=== PATIENT | female | born 1935 | race Caucasian/White ===

== ENCOUNTER 2020-09-18 11:23 | Inpatient (IN) | payer MEDICARE, BC ==
[2020-09-18] MEDS ORDERED: Nitroglycerin 2% Ointment 1 INCH/1 GM Packet ONE (12:09)
[2020-09-18 12:11] LABS: #Basophils 0.1 10x3/uL (0.0-0.2); #Eosinphils 0.1 10x3/uL (0.0-0.5); #Monocytes 1.1 10x3/uL (0.0-1.1); #Neutrophils 7.2 10x3/uL (1.5-8.4); %Basophils 0.5 % (0.0-2.0); %Eosinophils 0.9 % (0.0-6.0); %Lymphocytes 14.8 % (18.0-47.0); %Monocytes 11.1 % (0.0-10.0); %Neutrophils 72.4 % (40.0-75.0); Hemoglobin 13.5 g/dL (12.0-15.5); Mean Corpuscular HGB CONC 32.9 g/dL (32.0-36.0); Mean Corpuscular Hemoglobin 30.6 pg (27.0-33.0); Mean Platelet Volume 9.4 fl (7.4-10.4); Platelet Count 251 10x3/uL (150-450); RBC Distribution Width 12.7 % (11.5-14.5); Red Blood Cell (RBC) Count 4.41 10x6/uL (3.90-5.03)
[2020-09-18 12:31] LABS: ALT (SGPT) 26 U/L (8-55); Albumin 4.1 g/dL (3.4-4.8); Alkaline Phosphatase 76 U/L (40-110); Anion Gap 15 mmol/L (10-20); BUN (Urea Nitrogen) 20 mg/dL (9.8-20.1); Bilirubin, Total 0.3 mg/dL (0.2-1.2); Calc. Creatinine Clearance 0 mL/min (70-130); Calcium 9.5 mg/dL (7.8-10.44); Carbon Dioxide 27 mmol/L (23-31); Chloride 103 mmol/L (98-107); Globulin 3.2 g/dL (2.4-3.5); Glucose 189 mg/dL (83-110); Potassium 4.9 mmol/L (3.5-5.1); Protein, Total 7.3 g/dL (5.8-8.1); Sodium 140 mmol/L (136-145)
[2020-09-18 12:48] LABS: AST (SGOT) 63 U/L (5-34)
[2020-09-18] MEDS ORDERED: Enoxaparin Sodium 60 MG/0.6 ML SYRINGE ONE (13:29)
[2020-09-18] MEDS ORDERED: Acetaminophen 325 MG TAB PO PRN (14:03)
[2020-09-18] MEDS ORDERED: Ondansetron PF 4 MG/2 ML Vial IVP PRN (14:03)
[2020-09-18] MEDS ORDERED: Senokot S 8.6-50 MG TAB PO PRN (14:03)
[2020-09-18] MEDS ORDERED: Communication Order-Pharmacy FS SCH (15:00)
[2020-09-18] MEDS ORDERED: Carvedilol 3.125 MG TAB PO SCH (15:00)
[2020-09-18 16:19] LABS: Troponin I 4.959 ng/mL (< 0.028)
[2020-09-18 17:11] VITALS: BMI 25.4
[2020-09-18] MEDS: Carvedilol 3.125 MG TAB PO SCH (18:16)
[2020-09-18 18:40] LABS: Troponin I 5.669 ng/mL (< 0.028)
[2020-09-18] MEDS: Atorvastatin Calcium 40 MG TAB PO SCH (20:14)
[2020-09-18] MEDS ORDERED: Enoxaparin Sodium 60 MG/0.6 ML SYRINGE SC SCH (21:00)
[2020-09-18] MEDS: Nitroglycerin 2% Ointment 1 INCH/1 GM Packet TOP SCH (21:26)
[2020-09-18 21:34] LABS: SARS-CoV-2 NAA Rapid Test Not Detected (NotDetected)
[2020-09-19] MEDS ORDERED: Morphine 2 MG/ML VIAL SLOW IVP SCH (00:15)
[2020-09-19 01:12] LABS: Troponin I 6.821 ng/mL (< 0.028)
[2020-09-19] MEDS: Nitroglycerin 2% Ointment 1 INCH/1 GM Packet TOP SCH ×3 (05:50→21:20)
[2020-09-19] MEDS ORDERED: Aspirin Chewable 81 MG TAB PO SCH ×2 (06:15→09:00)
[2020-09-19 06:19] LABS: #Eosinphils 0.1 10x3/uL (0.0-0.5); #Neutrophils 5.7 10x3/uL (1.5-8.4); %Basophils 0.5 % (0.0-2.0); %Eosinophils 1.5 % (0.0-6.0); %Lymphocytes 21.7 % (18.0-47.0); %Monocytes 11.4 % (0.0-10.0); %Neutrophils 64.4 % (40.0-75.0); Hemoglobin 11.5 g/dL (12.0-15.5); Mean Corpuscular HGB CONC 32.8 g/dL (32.0-36.0); Mean Corpuscular Hemoglobin 30.3 pg (27.0-33.0); Mean Corpuscular Volume 92.4 fl (81.6-98.3); Mean Platelet Volume 9.4 fl (7.4-10.4); Platelet Count 224 10x3/uL (150-450); RBC Distribution Width 12.7 % (11.5-14.5); White Blood Cell (WBC) Count 8.8 10x3/uL (3.5-10.5)
[2020-09-19] MEDS: Carvedilol 3.125 MG TAB PO SCH ×2 (06:19→17:44)
[2020-09-19 06:20] LABS: ALT (SGPT) 20 U/L (8-55); AST (SGOT) 43 U/L (5-34); Albumin 3.7 g/dL (3.4-4.8); Alkaline Phosphatase 62 U/L (40-110); Anion Gap 13 mmol/L (10-20); BUN (Urea Nitrogen) 19 mg/dL (9.8-20.1); Bilirubin, Total 0.5 mg/dL (0.2-1.2); Calc. Creatinine Clearance 40 mL/min (70-130); Calcium 8.7 mg/dL (7.8-10.44); Carbon Dioxide 28 mmol/L (23-31); Cardiac Risk 3.4 (Less than 4.5); Chloride 103 mmol/L (98-107); Cholesterol 138 mg/dl (< 200 Desired); Globulin 2.4 g/dL (2.4-3.5); Glucose 169 mg/dL (83-110); HDL Cholesterol 41 mg/dL (>60 Neg Risk); LDL Cholesterol, Calculated 69 mg/dL; Potassium 4.2 mmol/L (3.5-5.1); Protein, Total 6.1 g/dL (5.8-8.1); Sodium 140 mmol/L (136-145); Triglycerides 139 mg/dL (Less than 150)
[2020-09-19] MEDS: Valsartan 80 MG TAB PO SCH (06:20)
[2020-09-19 06:26] LABS: Critical Call Chem Troponin I RESULT DECREASING; Troponin I 6.465 ng/mL (< 0.028)
[2020-09-19 06:53] LABS: PTT 30.1 sec (22.0-33.0); Prothrombin Time 10.9 sec (9.5-12.1)
[2020-09-19] MEDS ORDERED: Lidocaine 1% (PF) 30 ML VIAL ONE (12:00)
[2020-09-19] MEDS ORDERED: Nitroglycerin 50 MG/250 ML BOT 250 ML ONE (12:00)
[2020-09-19] MEDS ORDERED: Heparin 10,000 UNITS/ 10 ML VIAL ONE (12:01)
[2020-09-19] MEDS ORDERED: Adenosine 6 MG/2 ML VIAL ONE (12:01)
[2020-09-19] MEDS ORDERED: Midazolam HCl 2 mg/2 ml Vial ONE (12:32)
[2020-09-19] MEDS ORDERED: Fentanyl 250 MCG/5 ML VIAL ONE (12:34)
[2020-09-19] MEDS ORDERED: Clopidogrel Bisulfate 300 MG TAB ONE (13:42)
[2020-09-19] MEDS ORDERED: niCARdipine 25 MG/10 ML VIAL ONE (13:51)
[2020-09-19] MEDS ORDERED: Sodium Chloride 0.9% 250 ML 250 ML ONE (13:53)
[2020-09-19] MEDS ORDERED: Sodium Chloride 0.9% 1,000 ML IV SCH (14:15)
[2020-09-19 20:39] LABS: Hemoglobin A1c 6.2 % (4.0-6.0)
[2020-09-19] MEDS: Atorvastatin Calcium 40 MG TAB PO SCH (21:20)
[2020-09-20 05:24] LABS: #Eosinphils 0.1 10x3/uL (0.0-0.5); #Monocytes 1.2 10x3/uL (0.0-1.1); #Neutrophils 5.5 10x3/uL (1.5-8.4); %Basophils 0.4 % (0.0-2.0); %Eosinophils 1.3 % (0.0-6.0); %Lymphocytes 27.2 % (18.0-47.0); %Monocytes 13.1 % (0.0-10.0); %Neutrophils 57.6 % (40.0-75.0); Mean Corpuscular HGB CONC 32.4 g/dL (32.0-36.0); Mean Corpuscular Hemoglobin 30.1 pg (27.0-33.0); Mean Corpuscular Volume 92.9 fl (81.6-98.3); Mean Platelet Volume 9.6 fl (7.4-10.4); Platelet Count 229 10x3/uL (150-450); RBC Distribution Width 12.6 % (11.5-14.5); Red Blood Cell (RBC) Count 3.66 10x6/uL (3.90-5.03); White Blood Cell (WBC) Count 9.5 10x3/uL (3.5-10.5)
[2020-09-20] MEDS: Nitroglycerin 2% Ointment 1 INCH/1 GM Packet TOP SCH (05:30)
[2020-09-20 05:46] LABS: ALT (SGPT) 18 U/L (8-55); AST (SGOT) 53 U/L (5-34); Albumin 3.4 g/dL (3.4-4.8); Alkaline Phosphatase 57 U/L (40-110); Anion Gap 13 mmol/L (10-20); BUN (Urea Nitrogen) 15 mg/dL (9.8-20.1); Bilirubin, Total 0.4 mg/dL (0.2-1.2); Calc. Creatinine Clearance 45 mL/min (70-130); Calcium 8.2 mg/dL (7.8-10.44); Carbon Dioxide 25 mmol/L (23-31); Chloride 109 mmol/L (98-107); Globulin 2.2 g/dL (2.4-3.5); Glucose 141 mg/dL (83-110); Potassium 3.9 mmol/L (3.5-5.1); Protein, Total 5.6 g/dL (5.8-8.1); Sodium 143 mmol/L (136-145)
[2020-09-20] MEDS: Carvedilol 3.125 MG TAB PO SCH (08:15)
[2020-09-20] MEDS: Valsartan 80 MG TAB PO SCH (08:16)
[2020-09-20] MEDS ORDERED: pyridOXINE 50 MG (B6) TAB PO SCH (09:00)
[2020-09-20] MEDS ORDERED: Aspirin Chewable 81 MG TAB PO SCH (09:00)
[2020-09-20] MEDS ORDERED: Clopidogrel Bisulfate 75 MG TAB PO SCH (09:00)
[2020-09-20] MEDS ORDERED: Amlodipine 5 MG TAB PO SCH (09:00)
[2020-09-20 12:50] VITALS: BP 106/62; TEMP 97.4
[2020-09-20] MEDS ORDERED: Pravastatin Sodium 20 MG TAB PO SCH (21:00)
== END 2020-09-20 13:38 | disposition home or self-care (01) | DRG 247 ==
LOC: CSHERS 11:23 → CSHTELE 15:39
PROVIDERS: ADMIT Internal Medicine; ATTEND Internal Medicine
PROC: 4A023N7 Measurement of Cardiac Sampling and Pressure, Left Heart, Percutaneous Approach (ICD-10-PCS; principal; 2020-09-19)
PROC: 027034Z Dilation of Coronary Artery, One Artery with Drug-eluting Intraluminal Device, Percutaneous Approach (ICD-10-PCS; 2020-09-19)
PROC: B2151ZZ Fluoroscopy of Left Heart using Low Osmolar Contrast (ICD-10-PCS; 2020-09-19)
PROC: B2111ZZ Fluoroscopy of Multiple Coronary Arteries using Low Osmolar Contrast (ICD-10-PCS; 2020-09-19)
DX: I21.4 Non-ST elevation (NSTEMI) myocardial infarction (principal); E78.5 Hyperlipidemia, unspecified; E11.9 Type 2 diabetes mellitus without complications; F03.90 Unspecified dementia, unspecified severity, without behavioral disturbance, psychotic disturbance, mood disturbance, and anxiety; Z66 Do not resuscitate; Z88.0 Allergy status to penicillin; I25.10 Atherosclerotic heart disease of native coronary artery without angina pectoris; I48.0 Paroxysmal atrial fibrillation; Z20.822 Contact with and (suspected) exposure to COVID-19
CPT/HCPCS: 36415; 71045; 80053; 80061; 82553; 83036; 83735; 84484; 85025; 85610; 85730; 92928; 92978; 93005; 93010; 93306; 93458; 94760; 96372; 97139; 99152; 99153; C1753; C1874; C1887; C9600; J0153; J1644; J1650; J2001; J2250; J2270; J3010; J7050; U0002

== ENCOUNTER 2020-10-25 12:33 | Observation (INO) | payer MEDICARE, BC ==
[2020-10-25 13:19] LABS: #Eosinphils 0.3 10x3/uL (0.0-0.5); #Neutrophils 4.9 10x3/uL (1.5-8.4); %Basophils 0.5 % (0.0-2.0); %Eosinophils 3.5 % (0.0-6.0); %Lymphocytes 22.9 % (18.0-47.0); %Monocytes 11.9 % (0.0-10.0); Hemoglobin 12.6 g/dL (12.0-15.5); Mean Corpuscular HGB CONC 32.8 g/dL (32.0-36.0); Mean Corpuscular Hemoglobin 30.4 pg (27.0-33.0); Mean Corpuscular Volume 92.5 fl (81.6-98.3); Mean Platelet Volume 9.2 fl (7.4-10.4); Platelet Count 244 10x3/uL (150-450); Red Blood Cell (RBC) Count 4.15 10x6/uL (3.90-5.03)
[2020-10-25 13:26] LABS: ALT (SGPT) 21 U/L (8-55); AST (SGOT) 23 U/L (5-34); Albumin 4.4 g/dL (3.4-4.8); Alkaline Phosphatase 69 U/L (40-110); Anion Gap 16 mmol/L (10-20); BUN (Urea Nitrogen) 29 mg/dL (9.8-20.1); Bilirubin, Total 0.5 mg/dL (0.2-1.2); Calc. Creatinine Clearance 0 mL/min (70-130); Calcium 9.5 mg/dL (7.8-10.44); Carbon Dioxide 28 mmol/L (23-31); Chloride 102 mmol/L (98-107); Globulin 2.3 g/dL (2.4-3.5); Glucose 107 mg/dL (83-110); Potassium 4.7 mmol/L (3.5-5.1); Protein, Total 6.7 g/dL (5.8-8.1); Prothrombin Time 10.8 sec (9.5-12.1); Sodium 141 mmol/L (136-145)
[2020-10-25] MEDS ORDERED: hydrALAZINE 20 MG/ML VIAL SLOW IVP PRN (15:04)
[2020-10-25] MEDS ORDERED: Dextrose 50% Abboject 50 ML SYRINGE SLOW IVP PRN (15:26)
[2020-10-25] MEDS ORDERED: HumaLOG 300 UNITS/3 ML VIAL SC PRN ×2 (15:26)
[2020-10-25] MEDS ORDERED: Dextrose 5% in Water 1,000 ML IV PRN (15:26)
[2020-10-25 19:26] VITALS: BMI 23.5
[2020-10-25 19:56] LABS: Bilirubin Neg (Negative); Blood, Urine 10 (Negative); Clarity Clear (Clear); Glucose, Urine (Dipstick) >=1000 mg/dL (Negative); Ketone, Urine Negative (Negative); Leukocyte 100 (Negative); Nitrite Negative (Negative); Protein, Urine (Dipstick) Negative (Neg-Trace); Specific Gravity, Urine 1.005 (1.002-1.036); Urobilinogen Normal mg/dL (Less than 2); pH, Urine 6.5 (5.0-9.0)
[2020-10-25] MEDS: Sodium Chloride 0.9% 1,000 ML IV SCH (20:17)
[2020-10-25] MEDS: Carvedilol 3.125 MG TAB PO SCH (20:18)
[2020-10-25] MEDS: Dofetilide 0.125 MG CAP PO SCH (20:19)
[2020-10-25 20:29] LABS: RBC/HPF 0-3 HPF (0-3); WBC/HPF 0-3 HPF (0-3)
[2020-10-25] MEDS: Famotidine 20 MG TAB PO SCH (20:29)
[2020-10-25 20:30] LABS: Bacteria/HPF None Seen HPF (None Seen); Squamous Epithelial 0-3 HPF (0-3)
[2020-10-25] MEDS ORDERED: Atorvastatin Calcium 40 MG TAB PO SCH (21:00)
[2020-10-25] MEDS ORDERED: Enoxaparin Sodium 30 MG/0.3 ML SYRINGE SC SCH (21:00)
[2020-10-26] MEDS: Sodium Chloride 0.9% 1,000 ML IV SCH ×2 (06:10→15:51)
[2020-10-26 06:22] LABS: Anion Gap 13 mmol/L (10-20); BUN (Urea Nitrogen) 21 mg/dL (9.8-20.1); Calc. Creatinine Clearance 32 mL/min (70-130); Calcium 8.6 mg/dL (7.8-10.44); Carbon Dioxide 27 mmol/L (23-31); Chloride 109 mmol/L (98-107); Glucose 105 mg/dL (83-110); Sodium 145 mmol/L (136-145)
[2020-10-26] MEDS: Carvedilol 3.125 MG TAB PO SCH ×2 (08:36→17:08)
[2020-10-26] MEDS: Dofetilide 0.125 MG CAP PO SCH (08:36)
[2020-10-26] MEDS ORDERED: Ubidecarenone 50 MG CAP PO SCH (09:00)
[2020-10-26] MEDS ORDERED: Magnesium Oxide 400 MG TAB PO SCH (09:00)
[2020-10-26] MEDS ORDERED: Clopidogrel Bisulfate 75 MG TAB PO SCH (09:00)
[2020-10-26] MEDS ORDERED: Aspirin 81 mg Enteric Coated Tablet PO SCH (09:00)
[2020-10-26 13:37] LABS: SARS-CoV-2 NAA Rapid Test Not Detected (NotDetected)
[2020-10-26 17:04] VITALS: BP 159/60; TEMP 97.6
[2020-10-26] MEDS: Famotidine 20 MG TAB PO SCH (17:08)
[2020-10-26] MEDS ORDERED: Lidocaine 1% PF 5 ML VIAL ONE (18:16)
== END 2020-10-26 19:36 | disposition home or self-care (01) ==
LOC: CSHERS 12:33 → SUATTDRO 12:33 → CSHERHOLD 16:36 → UNDOADMOB 16:36 → INTOOBSV 16:36 → CSHTELE 18:25 → CSHERHOLD 18:25 → CSHTELE 10-26 14:19 → UNDODISOB 10-26 19:36
PROVIDERS: ADMIT Family Medicine; ATTEND Internal Medicine
DX: G45.9 Transient cerebral ischemic attack, unspecified (principal); N17.9 Acute kidney failure, unspecified; I48.0 Paroxysmal atrial fibrillation; I25.10 Atherosclerotic heart disease of native coronary artery without angina pectoris; Z88.0 Allergy status to penicillin; E78.5 Hyperlipidemia, unspecified; I25.2 Old myocardial infarction; Z95.1 Presence of aortocoronary bypass graft; Z95.5 Presence of coronary angioplasty implant and graft; I10 Essential (primary) hypertension; Z90.49 Acquired absence of other specified parts of digestive tract; Z90.710 Acquired absence of both cervix and uterus; F01.51 Vascular dementia, unspecified severity, with behavioral disturbance; I73.9 Peripheral vascular disease, unspecified; Z20.822 Contact with and (suspected) exposure to COVID-19
CPT/HCPCS: 70450; 70551; 71045; 80048; 80053; 82962 ×2; 84484; 85025; 85610; 85730; 93005; 93306; 93880; C1764; U0002; 33285; 36415; 36416; 81003; 81015; 87635; J1650; J8499; U0003; U0005

== ENCOUNTER 2020-10-30 09:42 | Observation (INO) | payer MEDICARE, BC ==
[2020-10-30 10:46] LABS: #Eosinphils 0.2 10x3/uL (0.0-0.5); #Monocytes 0.7 10x3/uL (0.0-1.1); #Neutrophils 3.9 10x3/uL (1.5-8.4); %Basophils 0.5 % (0.0-2.0); %Eosinophils 3.7 % (0.0-6.0); %Neutrophils 60.5 % (40.0-75.0); Mean Corpuscular HGB CONC 32.8 g/dL (32.0-36.0); Mean Corpuscular Hemoglobin 30.8 pg (27.0-33.0); Mean Corpuscular Volume 94.1 fl (81.6-98.3); Mean Platelet Volume 9.2 fl (7.4-10.4); Platelet Count 227 10x3/uL (150-450); Red Blood Cell (RBC) Count 3.89 10x6/uL (3.90-5.03); White Blood Cell (WBC) Count 6.5 10x3/uL (3.5-10.5)
[2020-10-30 11:04] LABS: ALT (SGPT) 24 U/L (8-55); AST (SGOT) 22 U/L (5-34); Albumin 3.9 g/dL (3.4-4.8); Alkaline Phosphatase 61 U/L (40-110); Anion Gap 16 mmol/L (10-20); BUN (Urea Nitrogen) 22 mg/dL (9.8-20.1); Bilirubin, Total 0.5 mg/dL (0.2-1.2); Calc. Creatinine Clearance 0 mL/min (70-130); Calcium 8.9 mg/dL (7.8-10.44); Carbon Dioxide 26 mmol/L (23-31); Chloride 105 mmol/L (98-107); Globulin 2.5 g/dL (2.4-3.5); Glucose 194 mg/dL (83-110); Lipase 40 U/L (8-78); Potassium 4.5 mmol/L (3.5-5.1); Protein, Total 6.4 g/dL (5.8-8.1); Sodium 142 mmol/L (136-145)
[2020-10-30 12:23] LABS: Bilirubin Neg (Negative); Blood, Urine Negative (Negative); Clarity Clear (Clear); Glucose, Urine (Dipstick) >=1000 mg/dL (Negative); Ketone, Urine Negative (Negative); Leukocyte 25 (Negative); Nitrite Negative (Negative); Protein, Urine (Dipstick) Negative (Neg-Trace); Urobilinogen Normal mg/dL (Less than 2)
[2020-10-30 12:35] LABS: Bacteria/HPF None Seen HPF (None Seen); RBC/HPF None Seen HPF (0-3); Squamous Epithelial None Seen HPF (0-3); WBC/HPF None Seen HPF (0-3)
[2020-10-30 13:57] VITALS: BMI 24.2
[2020-10-30] MEDS ORDERED: hydrALAZINE 20 MG/ML VIAL SLOW IVP PRN (15:49)
[2020-10-30] MEDS: Carvedilol 3.125 MG TAB PO SCH (17:27)
[2020-10-30] MEDS ORDERED: Communication Order-Pharmacy FS SCH (17:45)
[2020-10-30] MEDS: Atorvastatin Calcium 40 MG TAB PO SCH (21:53)
[2020-10-30] MEDS: Acetylcysteine 20% 200 MG/ML 30 ML VIAL PO SCH (21:53)
[2020-10-30] MEDS: Dofetilide 0.125 MG CAP PO SCH (21:53)
[2020-10-31] MEDS: Carvedilol 3.125 MG TAB PO SCH ×2 (06:51→16:24)
[2020-10-31] MEDS ORDERED: Sodium Chloride 0.9% 1,000 ML IV SCH ×2 (07:00→08:00)
[2020-10-31] MEDS: Clopidogrel Bisulfate 75 MG TAB PO SCH (07:40)
[2020-10-31] MEDS: Aspirin Chewable 81 MG TAB PO SCH (07:40)
[2020-10-31] MEDS: Acetylcysteine 20% 200 MG/ML 30 ML VIAL PO SCH ×2 (07:40→20:35)
[2020-10-31] MEDS: Furosemide 20 MG TAB PO SCH (08:42)
[2020-10-31] MEDS: Ezetimibe 10 MG TAB PO SCH (08:42)
[2020-10-31] MEDS ORDERED: Nitroglycerin 50 MG/250 ML BOT 250 ML ONE (09:03)
[2020-10-31] MEDS ORDERED: Lidocaine 1% (PF) 30 ML VIAL ONE (09:03)
[2020-10-31] MEDS ORDERED: Heparin 10,000 UNITS/ 10 ML VIAL ONE (09:04)
[2020-10-31] MEDS ORDERED: Adenosine 6 MG/2 ML VIAL ONE (09:04)
[2020-10-31] MEDS ORDERED: Sodium Chloride 0.9% 1,000 ML ONE (09:05)
[2020-10-31] MEDS ORDERED: Fentanyl 100 MCG/2 ML VIAL ONE ×2 (10:15→12:24)
[2020-10-31] MEDS ORDERED: Midazolam HCl 2 mg/2 ml Vial ONE (10:15)
[2020-10-31] MEDS ORDERED: Protamine Sulfate 50 MG/5 ML VIAL ONE (12:21)
[2020-10-31] MEDS ORDERED: Acetaminophen/Codeine 30-300mg Tablet PO PRN (12:51)
[2020-10-31] MEDS ORDERED: Morphine 4 MG/ML VIAL SLOW IVP PRN (13:26)
[2020-10-31] MEDS ORDERED: Morphine 2 MG/ML VIAL ONE (13:38)
[2020-10-31] MEDS: Saccharomyces boulardii 250 MG CAP PO SCH (16:24)
[2020-10-31] MEDS: Dofetilide 0.125 MG CAP PO SCH ×2 (16:24→20:36)
[2020-10-31] MEDS: Atorvastatin Calcium 40 MG TAB PO SCH (20:36)
[2020-11-01 05:16] LABS: #Eosinphils 0.3 10x3/uL (0.0-0.5); #Monocytes 0.6 10x3/uL (0.0-1.1); #Neutrophils 3.6 10x3/uL (1.5-8.4); %Basophils 0.7 % (0.0-2.0); %Eosinophils 4.3 % (0.0-6.0); %Lymphocytes 25.8 % (18.0-47.0); %Monocytes 10.2 % (0.0-10.0); %Neutrophils 58.3 % (40.0-75.0); Mean Corpuscular HGB CONC 31.8 g/dL (32.0-36.0); Mean Corpuscular Hemoglobin 30.1 pg (27.0-33.0); Mean Corpuscular Volume 94.6 fl (81.6-98.3); Mean Platelet Volume 9.2 fl (7.4-10.4); Platelet Count 214 10x3/uL (150-450); RBC Distribution Width 13.4 % (11.5-14.5); Red Blood Cell (RBC) Count 3.32 10x6/uL (3.90-5.03); White Blood Cell (WBC) Count 6.1 10x3/uL (3.5-10.5)
[2020-11-01 05:37] LABS: ALT (SGPT) 19 U/L (8-55); AST (SGOT) 21 U/L (5-34); Albumin 3.3 g/dL (3.4-4.8); Alkaline Phosphatase 50 U/L (40-110); Anion Gap 13 mmol/L (10-20); BUN (Urea Nitrogen) 18 mg/dL (9.8-20.1); Bilirubin, Total 0.4 mg/dL (0.2-1.2); Calc. Creatinine Clearance 35 mL/min (70-130); Calcium 8.4 mg/dL (7.8-10.44); Carbon Dioxide 26 mmol/L (23-31); Chloride 109 mmol/L (98-107); Globulin 1.9 g/dL (2.4-3.5); Glucose 115 mg/dL (83-110); Potassium 4.3 mmol/L (3.5-5.1); Protein, Total 5.2 g/dL (5.8-8.1); Sodium 144 mmol/L (136-145)
[2020-11-01] MEDS: Ezetimibe 10 MG TAB PO SCH (08:54)
[2020-11-01] MEDS: Carvedilol 3.125 MG TAB PO SCH (08:54)
[2020-11-01] MEDS: Saccharomyces boulardii 250 MG CAP PO SCH (08:54)
[2020-11-01] MEDS: Aspirin Chewable 81 MG TAB PO SCH (08:54)
[2020-11-01] MEDS: Clopidogrel Bisulfate 75 MG TAB PO SCH (08:54)
[2020-11-01] MEDS: Furosemide 20 MG TAB PO SCH (08:54)
[2020-11-01] MEDS: Dofetilide 0.125 MG CAP PO SCH (08:54)
[2020-11-01] MEDS ORDERED: Losartan Potassium 50 MG TAB PO SCH (09:00)
[2020-11-01] MEDS: Acetylcysteine 20% 200 MG/ML 30 ML VIAL PO SCH (11:37)
[2020-11-01 12:15] VITALS: TEMP 97.7
[2020-11-01 16:17] VITALS: BP 114/54
== END 2020-11-01 16:11 | disposition home or self-care (01) ==
LOC: CSHERS 09:42 → CSHTELE 13:20
PROVIDERS: ADMIT Internal Medicine; ATTEND Internal Medicine
DX: G45.9 Transient cerebral ischemic attack, unspecified (principal); E11.22 Type 2 diabetes mellitus with diabetic chronic kidney disease; I11.0 Hypertensive heart disease with heart failure; I50.32 Chronic diastolic (congestive) heart failure; I25.118 Atherosclerotic heart disease of native coronary artery with other forms of angina pectoris; I48.0 Paroxysmal atrial fibrillation; E78.5 Hyperlipidemia, unspecified; I25.2 Old myocardial infarction; Z95.5 Presence of coronary angioplasty implant and graft; Z79.899 Other long term (current) drug therapy; Z79.82 Long term (current) use of aspirin; Z79.02 Long term (current) use of antithrombotics/antiplatelets; I70.213 Atherosclerosis of native arteries of extremities with intermittent claudication, bilateral legs; Z90.49 Acquired absence of other specified parts of digestive tract; Z90.710 Acquired absence of both cervix and uterus; Z79.84 Long term (current) use of oral hypoglycemic drugs
CPT/HCPCS: 70450; 80053; 83690; 83735; 84484; 85025; 85347; 92978; 92979; 93005 ×2; 93458; 93926; 96376; 97139 ×2; 97530; 99285; C1753; C1760; C1874; C1887 ×2; C9600; G0378 ×4; J2270; 81003; 81015; 84443; 92928; 93010; 96374; 99152; 99153; J0132; J0153; J1644; J2001; J2250; J2720; J3010; J7050; J8499

== ENCOUNTER 2020-11-01 19:38 | Inpatient (IN) | payer MEDICARE, BC ==
[2020-11-01 20:23] LABS: #Eosinphils 0.6 10x3/uL (0.0-0.5); #Monocytes 1.1 10x3/uL (0.0-1.1); #Neutrophils 4.9 10x3/uL (1.5-8.4); %Basophils 0.5 % (0.0-2.0); %Eosinophils 6.9 % (0.0-6.0); %Lymphocytes 19.5 % (18.0-47.0); %Monocytes 13.2 % (0.0-10.0); %Neutrophils 59.5 % (40.0-75.0); Hemoglobin 9.3 g/dL (12.0-15.5); Mean Corpuscular HGB CONC 32.3 g/dL (32.0-36.0); Mean Corpuscular Hemoglobin 30.6 pg (27.0-33.0); Mean Corpuscular Volume 94.7 fl (81.6-98.3); Mean Platelet Volume 9.2 fl (7.4-10.4); Platelet Count 201 10x3/uL (150-450); RBC Distribution Width 13.3 % (11.5-14.5); Red Blood Cell (RBC) Count 3.04 10x6/uL (3.90-5.03); White Blood Cell (WBC) Count 8.2 10x3/uL (3.5-10.5)
[2020-11-01 20:39] LABS: ALT (SGPT) 21 U/L (8-55); AST (SGOT) 23 U/L (5-34); Albumin 3.3 g/dL (3.4-4.8); Alkaline Phosphatase 51 U/L (40-110); Anion Gap 14 mmol/L (10-20); BUN (Urea Nitrogen) 22 mg/dL (9.8-20.1); Bilirubin, Total 0.5 mg/dL (0.2-1.2); Calc. Creatinine Clearance 0 mL/min (70-130); Calcium 8.2 mg/dL (7.8-10.44); Carbon Dioxide 24 mmol/L (23-31); Chloride 101 mmol/L (98-107); Glucose 121 mg/dL (83-110); Potassium 3.8 mmol/L (3.5-5.1); Protein, Total 5.3 g/dL (5.8-8.1); Sodium 135 mmol/L (136-145)
[2020-11-01 20:50] LABS: PTT 21.4 sec (22.0-33.0); Prothrombin Time 11.1 sec (9.5-12.1)
[2020-11-01 21:12] LABS: CKMB 4.8 ng/mL (0-6.6)
[2020-11-01] MEDS ORDERED: Dextrose 50% Abboject 50 ML SYRINGE SLOW IVP PRN (23:13)
[2020-11-01] MEDS ORDERED: HumaLOG 300 UNITS/3 ML VIAL SC PRN (23:13)
[2020-11-01] MEDS ORDERED: Acetaminophen 325 MG TAB PO PRN (23:13)
[2020-11-01] MEDS ORDERED: Calcium Carbonate 500 MG ChewTAB PO PRN (23:13)
[2020-11-01] MEDS ORDERED: Dextrose 5% in Water 1,000 ML IV PRN (23:13)
[2020-11-01] MEDS ORDERED: Sodium Chloride 0.9% 500 ML IV SCH (23:30)
[2020-11-01] MEDS ORDERED: Sodium Chloride 0.9% 1,000 ML IV SCH (23:30)
[2020-11-01 23:43] LABS: Actual Bicarbonate (HCO3a) 24.5 mEq/L (22-28); Base Excess (BEa) -0.1 mEq/L (-2.0 to +3.0); CO2 Tension 39.8 mmHg (35.0-45.0); Calcium, Ionized (arterial) 1.21 mmol/L (1.12-1.30); Carboxyhemoglobin (COHb) 0.3 gm% (0.0-3.0); Hemoglobin (Hb) 10.5 g/dL (12.0-16.0); O2 Tension (PaO2), arterial 58.2 mmHg (> 60.0); Puncture Site RBA; pH, Arterial 7.41 (7.35-7.45)
[2020-11-02 02:06] VITALS: BMI 36.5
[2020-11-02 04:00] LABS: #Basophils 0.1 10x3/uL (0.0-0.2); #Eosinphils 0.5 10x3/uL (0.0-0.5); #Monocytes 0.9 10x3/uL (0.0-1.1); #Neutrophils 3.9 10x3/uL (1.5-8.4); %Basophils 0.9 % (0.0-2.0); %Eosinophils 7.2 % (0.0-6.0); %Lymphocytes 22.9 % (18.0-47.0); %Monocytes 12.3 % (0.0-10.0); %Neutrophils 56.6 % (40.0-75.0); Hemoglobin 9.8 g/dL (12.0-15.5); Mean Corpuscular HGB CONC 32.7 g/dL (32.0-36.0); Mean Corpuscular Hemoglobin 30.8 pg (27.0-33.0); Mean Corpuscular Volume 94.3 fl (81.6-98.3); Mean Platelet Volume 9.1 fl (7.4-10.4); Platelet Count 197 10x3/uL (150-450); RBC Distribution Width 13.2 % (11.5-14.5); Red Blood Cell (RBC) Count 3.18 10x6/uL (3.90-5.03); White Blood Cell (WBC) Count 6.9 10x3/uL (3.5-10.5)
[2020-11-02 04:18] LABS: Anion Gap 14 mmol/L (10-20); BUN (Urea Nitrogen) 21 mg/dL (9.8-20.1); Calc. Creatinine Clearance 46 mL/min (70-130); Calcium 8.8 mg/dL (7.8-10.44); Carbon Dioxide 25 mmol/L (23-31); Cardiac Risk 3.3 (Less than 4.5); Chloride 105 mmol/L (98-107); Cholesterol 87 mg/dl (< 200 Desired); Glucose 120 mg/dL (83-110); HDL Cholesterol 26 mg/dL (>60 Neg Risk); LDL Cholesterol, Calculated 42 mg/dL; Potassium 4.2 mmol/L (3.5-5.1); Sodium 140 mmol/L (136-145); Triglycerides 94 mg/dL (Less than 150)
[2020-11-02 05:20] LABS: CKMB 3.7 ng/mL (0-6.6)
[2020-11-02] MEDS: Dextrose 5 %-0.45 % NaCl 1,000 ML IV SCH ×2 (08:00→21:04)
[2020-11-02 08:18] LABS: CKMB 3.6 ng/mL (0-6.6)
[2020-11-02] MEDS ORDERED: Enoxaparin Sodium 40 MG/0.4 ML SYRINGE SC SCH (09:00)
[2020-11-02] MEDS ORDERED: Calcium Carbonate 500 MG TAB PO SCH (09:00)
[2020-11-02 11:03] LABS: Hemoglobin A1c 6.2 % (4.0-6.0)
[2020-11-02] MEDS: Aspirin Chewable 81 MG TAB PO SCH (14:53)
[2020-11-02] MEDS: Cholecalciferol 1,000 UNITS (25 MCG) TAB PO SCH ×2 (14:53→20:59)
[2020-11-02] MEDS: Clopidogrel Bisulfate 75 MG TAB PO SCH (14:53)
[2020-11-02] MEDS: Fish Oil 1,000 MG CAP PO SCH (14:54)
[2020-11-02] MEDS: Dofetilide 0.125 MG CAP PO SCH ×2 (14:54→21:04)
[2020-11-02] MEDS: Cyanocobalamin (Vitamin B-12) 1,000 MCG TAB PO SCH (14:54)
[2020-11-02] MEDS: Magnesium Oxide 400 MG TAB PO SCH (14:54)
[2020-11-02] MEDS: Ezetimibe 10 MG TAB PO SCH (14:54)
[2020-11-02] MEDS: Ubidecarenone 50 MG CAP PO SCH (14:55)
[2020-11-02] MEDS: pyridOXINE 50 MG (B6) TAB PO SCH (14:55)
[2020-11-02] MEDS: Atorvastatin Calcium 40 MG TAB PO SCH (20:59)
[2020-11-03] MEDS: Clopidogrel Bisulfate 75 MG TAB PO SCH (10:40)
[2020-11-03] MEDS: Ubidecarenone 50 MG CAP PO SCH (10:40)
[2020-11-03] MEDS: Cyanocobalamin (Vitamin B-12) 1,000 MCG TAB PO SCH (10:40)
[2020-11-03] MEDS: Fish Oil 1,000 MG CAP PO SCH ×3 (10:40→13:25)
[2020-11-03] MEDS: Cholecalciferol 1,000 UNITS (25 MCG) TAB PO SCH ×2 (10:40→21:01)
[2020-11-03] MEDS: Ezetimibe 10 MG TAB PO SCH (10:40)
[2020-11-03] MEDS: Magnesium Oxide 400 MG TAB PO SCH (10:40)
[2020-11-03] MEDS: pyridOXINE 50 MG (B6) TAB PO SCH (10:40)
[2020-11-03] MEDS: Aspirin Chewable 81 MG TAB PO SCH (10:40)
[2020-11-03] MEDS: Calcium Carbonate 500 MG ChewTAB PO SCH (10:40)
[2020-11-03] MEDS: Dofetilide 0.125 MG CAP PO SCH ×2 (12:20→21:01)
[2020-11-03] MEDS: Dextrose 5 %-0.45 % NaCl 1,000 ML IV SCH (12:20)
[2020-11-03] MEDS: Atorvastatin Calcium 40 MG TAB PO SCH (21:01)
[2020-11-04] MEDS: Dextrose 5 %-0.45 % NaCl 1,000 ML IV SCH ×3 (04:34→16:59)
[2020-11-04] MEDS ORDERED: Vitamin E 400 UNITS CAP PO SCH (09:00)
[2020-11-04] MEDS: Magnesium Oxide 400 MG TAB PO SCH (09:15)
[2020-11-04] MEDS: Fish Oil 1,000 MG CAP PO SCH (09:16)
[2020-11-04] MEDS: Ubidecarenone 50 MG CAP PO SCH (09:16)
[2020-11-04] MEDS: Cholecalciferol 1,000 UNITS (25 MCG) TAB PO SCH ×2 (09:16→20:51)
[2020-11-04] MEDS: pyridOXINE 50 MG (B6) TAB PO SCH (09:16)
[2020-11-04] MEDS: Ezetimibe 10 MG TAB PO SCH (09:16)
[2020-11-04] MEDS: Dofetilide 0.125 MG CAP PO SCH ×2 (09:17→20:51)
[2020-11-04] MEDS: Cyanocobalamin (Vitamin B-12) 1,000 MCG TAB PO SCH (09:17)
[2020-11-04] MEDS: Carvedilol 3.125 MG TAB PO SCH ×2 (09:17→16:59)
[2020-11-04] MEDS: Calcium Carbonate 500 MG ChewTAB PO SCH (09:17)
[2020-11-04] MEDS: Clopidogrel Bisulfate 75 MG TAB PO SCH (09:18)
[2020-11-04] MEDS: Aspirin Chewable 81 MG TAB PO SCH (09:18)
[2020-11-04] MEDS: Atorvastatin Calcium 40 MG TAB PO SCH (20:51)
[2020-11-05] MEDS: Ezetimibe 10 MG TAB PO SCH (09:58)
[2020-11-05] MEDS: Ubidecarenone 50 MG CAP PO SCH (09:58)
[2020-11-05] MEDS: Cholecalciferol 1,000 UNITS (25 MCG) TAB PO SCH (09:58)
[2020-11-05] MEDS: Carvedilol 3.125 MG TAB PO SCH ×2 (09:58→17:31)
[2020-11-05] MEDS: Fish Oil 1,000 MG CAP PO SCH (09:58)
[2020-11-05] MEDS: Aspirin Chewable 81 MG TAB PO SCH (09:58)
[2020-11-05] MEDS: Clopidogrel Bisulfate 75 MG TAB PO SCH (09:59)
[2020-11-05] MEDS: Magnesium Oxide 400 MG TAB PO SCH (09:59)
[2020-11-05] MEDS: pyridOXINE 50 MG (B6) TAB PO SCH (09:59)
[2020-11-05] MEDS: Calcium Carbonate 500 MG ChewTAB PO SCH (09:59)
[2020-11-05] MEDS: Cyanocobalamin (Vitamin B-12) 1,000 MCG TAB PO SCH (09:59)
[2020-11-05] MEDS: Dofetilide 0.125 MG CAP PO SCH (10:11)
[2020-11-05 16:41] VITALS: BP 156/64; TEMP 97.4
[2020-11-05] MEDS: Dextrose 5 %-0.45 % NaCl 1,000 ML IV SCH (17:32)
[2020-11-05] MEDS ORDERED: Melatonin 3 MG TAB PO SCH (21:00)
== END 2020-11-05 19:35 | DRG 64 ==
LOC: CSHERS 19:38 → CSHTELE 11-02 01:49 → OBSVTOIN 11-02 14:31 → CSHTELE 11-02 18:47
PROVIDERS: ADMIT Student in an Organized Health Care Education/Training Program; ATTEND Family Medicine
DX: I63.40 Cerebral infarction due to embolism of unspecified cerebral artery (principal); G93.41 Metabolic encephalopathy; I62.00 Nontraumatic subdural hemorrhage, unspecified; G81.91 Hemiplegia, unspecified affecting right dominant side; D62 Acute posthemorrhagic anemia; N17.9 Acute kidney failure, unspecified; I47.1 Supraventricular tachycardia; R94.31 Abnormal electrocardiogram [ECG] [EKG]; I48.0 Paroxysmal atrial fibrillation; I25.10 Atherosclerotic heart disease of native coronary artery without angina pectoris; I12.9 Hypertensive chronic kidney disease with stage 1 through stage 4 chronic kidney disease, or unspecified chronic kidney disease; E11.22 Type 2 diabetes mellitus with diabetic chronic kidney disease; R77.8 Other specified abnormalities of plasma proteins; Z66 Do not resuscitate; N18.31 Chronic kidney disease, stage 3a; F01.50 Vascular dementia, unspecified severity, without behavioral disturbance, psychotic disturbance, mood disturbance, and anxiety; E11.65 Type 2 diabetes mellitus with hyperglycemia; R29.810 Facial weakness; E78.2 Mixed hyperlipidemia; E86.0 Dehydration; Z53.1 Procedure and treatment not carried out because of patient's decision for reasons of belief and group pressure; R79.89 Other specified abnormal findings of blood chemistry; E11.51 Type 2 diabetes mellitus with diabetic peripheral angiopathy without gangrene; I65.23 Occlusion and stenosis of bilateral carotid arteries; Z88.0 Allergy status to penicillin; I25.2 Old myocardial infarction; Z79.899 Other long term (current) drug therapy; Z79.82 Long term (current) use of aspirin; Z79.84 Long term (current) use of oral hypoglycemic drugs; Z95.5 Presence of coronary angioplasty implant and graft; Z79.02 Long term (current) use of antithrombotics/antiplatelets; R29.702 NIHSS score 2
CPT/HCPCS: 36416; 36600; 70450; 70496; 70498; 70551; 71045; 80048; 80061; 82140; 82553; 82805; 83036; 84439; 84443; 84484; 85025; 85610; 85730; 93005; 94760; G0378; J7042; J8499

== ENCOUNTER 2022-10-28 21:46 | Inpatient (IN) | payer OTHER, MEDICARE, BC ==
[2022-10-28] MEDS ORDERED: Fentanyl 100 MCG/2 ML VIAL ONE (22:39)
[2022-10-28] MEDS ORDERED: Morphine 2 MG/ML VIAL ONE (23:19)
[2022-10-28 23:43] LABS: #Basophils 0.1 10x3/uL (0.0-0.2); #Eosinphils 0.1 10x3/uL (0.0-0.5); #Neutrophils 9.6 10x3/uL (1.5-8.4); %Basophils 0.5 % (0.0-2.0); %Lymphocytes 13.7 % (18.0-47.0); %Monocytes 7.7 % (0.0-10.0); %Neutrophils 76.7 % (40.0-75.0); Hemoglobin 13.2 g/dL (12.0-15.5); Mean Corpuscular HGB CONC 33.2 g/dL (32.0-36.0); Mean Corpuscular Hemoglobin 30.8 pg (27.0-33.0); Mean Corpuscular Volume 92.8 fl (81.6-98.3); Platelet Count 254 10x3/uL (150-450); RBC Distribution Width 12.6 % (11.5-14.5); Red Blood Cell (RBC) Count 4.28 10x6/uL (3.90-5.03); White Blood Cell (WBC) Count 12.5 10x3/uL (3.5-10.5)
[2022-10-28 23:46] LABS: Bilirubin Neg (Negative); Blood, Urine 25 (Negative); Clarity Clear (Clear); Glucose, Urine (Dipstick) Normal (Negative); Ketone, Urine Negative (Negative); Leukocyte Negative (Negative); Nitrite Negative (Negative); Protein, Urine (Dipstick) Negative (Neg-Trace); Urobilinogen Normal mg/dL (Less than 2)
[2022-10-29 00:01] LABS: Bacteria/HPF None Seen HPF (None Seen); RBC/HPF 0-3 HPF (0-3); Squamous Epithelial 0-3 HPF (0-3); WBC/HPF None Seen HPF (0-3)
[2022-10-29 00:26] LABS: ALT (SGPT) 18 U/L (8-55); AST (SGOT) 19 U/L (5-34); Albumin 4.5 g/dL (3.4-4.8); Alkaline Phosphatase 86 U/L (40-110); Anion Gap 20 mmol/L (10-20); BUN (Urea Nitrogen) 21 mg/dL (9.8-20.1); Bilirubin, Total 0.8 mg/dL (0.2-1.2); Calc. Creatinine Clearance 0 mL/min (70-130); Calcium 9.3 mg/dL (7.8-10.44); Carbon Dioxide 21 mmol/L (23-31); Estimated GFR 59; Globulin 2.5 g/dL (2.4-3.5); Glucose 188 mg/dL (83-110); Potassium 3.8 mmol/L (3.5-5.1)
[2022-10-29 00:37] LABS: Chloride 104 mmol/L (98-107); Sodium 141 mmol/L (136-145)
[2022-10-29] MEDS ORDERED: Dextrose 50% Abboject 50 ML SYRINGE SLOW IVP PRN (01:10)
[2022-10-29] MEDS ORDERED: Dextrose 5% in Water 1,000 ML IV PRN (01:10)
[2022-10-29] MEDS ORDERED: Guaifenesin DM 100-10/5 ML UDCUP PO PRN (01:10)
[2022-10-29] MEDS ORDERED: Calcium Carbonate 500 MG ChewTAB PO PRN (01:10)
[2022-10-29] MEDS ORDERED: Potassium Chloride 20 MEQ TAB PO SCH (01:30)
[2022-10-29] MEDS ORDERED: Acetaminophen 325 MG TAB ONE (01:30)
[2022-10-29] MEDS ORDERED: Sodium Chloride 0.9% 250 ML 250 ML IV SCH (01:30)
[2022-10-29] MEDS ORDERED: Metoprolol Tartrate 25 MG TAB PO SCH ×3 (01:30→09:00)
[2022-10-29] MEDS: Acetaminophen 325 MG TAB PO PRN ×2 (01:50→21:31)
[2022-10-29] MEDS ORDERED: Potassium Chloride 20 MEQ TAB ONE (01:54)
[2022-10-29] MEDS ORDERED: Ondansetron PF 4 MG/2 ML Vial ONE ×2 (02:07→09:24)
[2022-10-29] MEDS ORDERED: Metoprolol Tartrate 25 MG TAB ONE (02:07)
[2022-10-29] MEDS ORDERED: HYDROcodone/Acetaminophen 5/325 mg Tablet ONE ×3 (02:08→16:47)
[2022-10-29] MEDS: HYDROcodone/Acetaminophen 5/325 mg Tablet PO PRN ×3 (02:15→16:50)
[2022-10-29] MEDS: Ondansetron PF 4 MG/2 ML Vial IVP PRN ×2 (02:15→09:25)
[2022-10-29] MEDS ORDERED: Morphine 4 MG/ML VIAL ONE (03:17)
[2022-10-29] MEDS: Morphine 4 MG/ML VIAL SLOW IVP PRN (03:26)
[2022-10-29 04:11] LABS: Anion Gap 17 mmol/L (10-20); BUN (Urea Nitrogen) 20 mg/dL (9.8-20.1); Calc. Creatinine Clearance 0 mL/min (70-130); Calcium 8.7 mg/dL (7.8-10.44); Carbon Dioxide 21 mmol/L (23-31); Chloride 103 mmol/L (98-107); Estimated GFR 62; Glucose 266 mg/dL (83-110); Magnesium 1.7 mg/dL (1.6-2.6); Potassium 4.1 mmol/L (3.5-5.1); Sodium 137 mmol/L (136-145)
[2022-10-29] MEDS ORDERED: Magnesium Sulfate/D5W 1 GM/100 ML BAG IVPB SCH (04:45)
[2022-10-29] MEDS ORDERED: VITAMIN E ACID SUCCINATE 100 UNIT PO SCH (09:00)
[2022-10-29] MEDS ORDERED: Dofetilide 0.125 MG CAP PO SCH (09:00)
[2022-10-29] MEDS ORDERED: Escitalopram Oxalate 10 mg Tablet PO SCH (09:00)
[2022-10-29] MEDS: Magnesium Oxide 400 MG TAB PO SCH (09:25)
[2022-10-29] MEDS: Cholecalciferol 1,000 UNITS (25 MCG) TAB PO SCH ×2 (09:25→21:20)
[2022-10-29] MEDS: CO Q-10 CAPSULE 50 MG PO SCH (09:26)
[2022-10-29] MEDS: Famotidine 20 MG TAB PO SCH (09:26)
[2022-10-29] MEDS: Losartan Potassium 50 MG TAB PO SCH (09:26)
[2022-10-29] MEDS: Fish Oil 1,000 MG CAP PO SCH (09:27)
[2022-10-29] MEDS: Ezetimibe 10 MG TAB PO SCH (09:27)
[2022-10-29] MEDS: Calcium Carbonate 500 MG TAB PO SCH (09:27)
[2022-10-29] MEDS: pyridOXINE 50 MG (B6) TAB PO SCH (09:29)
[2022-10-29] MEDS ORDERED: Aspirin Chewable 81 MG TAB ONE (09:58)
[2022-10-29] MEDS: HumaLOG 300 UNITS/3 ML VIAL SC PRN (12:02)
[2022-10-29] MEDS: Morphine 2 MG/ML VIAL SLOW IVP PRN (12:08)
[2022-10-29] MEDS: Aspirin Chewable 81 MG TAB PO SCH (12:09)
[2022-10-29] MEDS ORDERED: Morphine 2 MG/ML VIAL ONE (12:09)
[2022-10-29] MEDS ORDERED: metFORMIN 500 MG TAB PO SCH (21:00)
[2022-10-29] MEDS: Atorvastatin Calcium 40 MG TAB PO SCH (21:20)
[2022-10-29] MEDS: Dofetilide 0.125 MG CAP PO SCH (21:39)
[2022-10-30 05:39] LABS: #Basophils 0.1 10x3/uL (0.0-0.2); #Eosinphils 0.3 10x3/uL (0.0-0.5); #Monocytes 1.2 10x3/uL (0.0-1.1); #Neutrophils 5.2 10x3/uL (1.5-8.4); %Basophils 0.6 % (0.0-2.0); %Eosinophils 3.2 % (0.0-6.0); %Lymphocytes 20.9 % (18.0-47.0); %Monocytes 13.8 % (0.0-10.0); %Neutrophils 61.1 % (40.0-75.0); Hemoglobin 10.1 g/dL (12.0-15.5); Mean Corpuscular HGB CONC 31.7 g/dL (32.0-36.0); Mean Corpuscular Hemoglobin 30.5 pg (27.0-33.0); Mean Corpuscular Volume 96.4 fl (81.6-98.3); Mean Platelet Volume 9.8 fl (7.4-10.4); Platelet Count 220 10x3/uL (150-450); RBC Distribution Width 12.9 % (11.5-14.5); Red Blood Cell (RBC) Count 3.31 10x6/uL (3.90-5.03); White Blood Cell (WBC) Count 8.5 10x3/uL (3.5-10.5)
[2022-10-30] MEDS: Losartan Potassium 50 MG TAB PO SCH (09:55)
[2022-10-30] MEDS: Dofetilide 0.125 MG CAP PO SCH ×2 (09:55→21:28)
[2022-10-30 10:24] LABS: Anion Gap 13 mmol/L (10-20); BUN (Urea Nitrogen) 28 mg/dL (9.8-20.1); Calc. Creatinine Clearance 31 mL/min (70-130); Carbon Dioxide 25 mmol/L (23-31); Chloride 103 mmol/L (98-107); Estimated GFR 46; Glucose 166 mg/dL (83-110); Magnesium 2.3 mg/dL (1.6-2.6); Potassium 4.9 mmol/L (3.5-5.1); Sodium 136 mmol/L (136-145)
[2022-10-30 10:43] VITALS: BMI 21.8
[2022-10-30] MEDS ORDERED: Ketamine 50 MG/ML (10ML VIAL) ONE (10:56)
[2022-10-30] MEDS ORDERED: PROPOFOL 20 ML ONE (10:59)
[2022-10-30] MEDS ORDERED: Fentanyl 100 MCG/2 ML VIAL ONE (10:59)
[2022-10-30] MEDS ORDERED: Clindamycin/D5W 900 mg/50 ml Premix Bag ONE (11:18)
[2022-10-30] MEDS ORDERED: Clindamycin/D5W 900 MG in Premix Bag 1 BAG IVPB SCH (12:00)
[2022-10-30] MEDS: Aspirin Chewable 81 MG TAB PO SCH (12:35)
[2022-10-30] MEDS: Cholecalciferol 1,000 UNITS (25 MCG) TAB PO SCH ×2 (12:36→21:28)
[2022-10-30] MEDS: Calcium Carbonate 500 MG TAB PO SCH (12:36)
[2022-10-30] MEDS: Magnesium Oxide 400 MG TAB PO SCH (12:37)
[2022-10-30] MEDS: Famotidine 20 MG TAB PO SCH (12:37)
[2022-10-30] MEDS: Fish Oil 1,000 MG CAP PO SCH (12:37)
[2022-10-30] MEDS: Ezetimibe 10 MG TAB PO SCH (12:37)
[2022-10-30] MEDS: CO Q-10 CAPSULE 50 MG PO SCH (12:38)
[2022-10-30] MEDS: pyridOXINE 50 MG (B6) TAB PO SCH (12:38)
[2022-10-30] MEDS: Morphine 2 MG/ML VIAL SLOW IVP PRN (14:37)
[2022-10-30] MEDS: Clindamycin/D5W 900 MG in Premix Bag 1 BAG IVPB SCH ×2 (14:37→21:28)
[2022-10-30] MEDS: Atorvastatin Calcium 40 MG TAB PO SCH (21:27)
[2022-10-31] MEDS ORDERED: Metoprolol Tartrate 25 MG TAB PO SCH (05:00)
[2022-10-31] MEDS: HYDROcodone/Acetaminophen 5/325 mg Tablet PO PRN (06:14)
[2022-10-31 06:47] LABS: Anion Gap 17 mmol/L (10-20); BUN (Urea Nitrogen) 28 mg/dL (9.8-20.1); Calc. Creatinine Clearance 32 mL/min (70-130); Calcium 8.7 mg/dL (7.8-10.44); Carbon Dioxide 23 mmol/L (23-31); Chloride 103 mmol/L (98-107); Estimated GFR 49; Glucose 169 mg/dL (83-110); Potassium 4.6 mmol/L (3.5-5.1); Sodium 138 mmol/L (136-145)
[2022-10-31 06:49] LABS: Hemoglobin 9.5 g/dL (12.0-15.5); Mean Corpuscular HGB CONC 32.4 g/dL (32.0-36.0); Mean Corpuscular Hemoglobin 30.7 pg (27.0-33.0); Mean Corpuscular Volume 94.8 fl (81.6-98.3); Platelet Count 228 10x3/uL (150-450); RBC Distribution Width 12.7 % (11.5-14.5); Red Blood Cell (RBC) Count 3.09 10x6/uL (3.90-5.03); White Blood Cell (WBC) Count 9.1 10x3/uL (3.5-10.5)
[2022-10-31 07:30] LABS: MDiff Complete? YES
[2022-10-31 07:32] LABS: Lymphocytes 12 % (21-51); Monocytes 12 % (0-10); Neutrophil 76 % (42-75)
[2022-10-31 07:33] LABS: Platelet Morphology Comment Appears Adequate
[2022-10-31 07:34] LABS: RBC Morphology Normal
[2022-10-31] MEDS ORDERED: Lorazepam 2 MG/ML VIAL SLOW IVP PRN ×2 (09:40→09:43)
[2022-10-31] MEDS ORDERED: QUEtiapine 25 MG TAB PO SCH ×2 (10:00→21:00)
[2022-10-31] MEDS: Losartan Potassium 50 MG TAB PO SCH (10:24)
[2022-10-31] MEDS: Aspirin Chewable 81 MG TAB PO SCH (10:24)
[2022-10-31] MEDS: Magnesium Oxide 400 MG TAB PO SCH (10:25)
[2022-10-31] MEDS: CO Q-10 CAPSULE 50 MG PO SCH (10:25)
[2022-10-31] MEDS: Dofetilide 0.125 MG CAP PO SCH (10:26)
[2022-10-31] MEDS: Fish Oil 1,000 MG CAP PO SCH (10:26)
[2022-10-31] MEDS: pyridOXINE 50 MG (B6) TAB PO SCH (10:26)
[2022-10-31] MEDS: Cholecalciferol 1,000 UNITS (25 MCG) TAB PO SCH ×2 (10:26→21:47)
[2022-10-31] MEDS: Ezetimibe 10 MG TAB PO SCH (10:27)
[2022-10-31] MEDS: Calcium Carbonate 500 MG TAB PO SCH (10:27)
[2022-10-31] MEDS: Famotidine 20 MG TAB PO SCH (10:27)
[2022-10-31] MEDS ORDERED: Acetaminophen 650 MG Suppository PR PRN (16:46)
[2022-10-31] MEDS ORDERED: ALPRAZolam 0.25 MG TAB PO PRN (16:48)
[2022-10-31] MEDS: QUEtiapine 25 MG TAB PO SCH (21:46)
[2022-10-31] MEDS: Atorvastatin Calcium 40 MG TAB PO SCH (21:47)
[2022-10-31] MEDS: Venlafaxine 75 MG TAB PO SCH (21:47)
[2022-11-01] MEDS: Dofetilide 0.125 MG CAP PO SCH ×3 (04:20→21:16)
[2022-11-01] MEDS: Atorvastatin Calcium 40 MG TAB PO SCH ×2 (04:22→21:16)
[2022-11-01] MEDS: Cholecalciferol 1,000 UNITS (25 MCG) TAB PO SCH ×3 (04:22→21:16)
[2022-11-01] MEDS: QUEtiapine 25 MG TAB PO SCH ×2 (04:23→21:16)
[2022-11-01] MEDS: Venlafaxine 75 MG TAB PO SCH ×2 (04:23→21:16)
[2022-11-01 06:28] LABS: #Basophils 0.1 10x3/uL (0.0-0.2); #Eosinphils 0.2 10x3/uL (0.0-0.5); #Monocytes 1.1 10x3/uL (0.0-1.1); #Neutrophils 5.8 10x3/uL (1.5-8.4); %Basophils 0.7 % (0.0-2.0); %Eosinophils 2.4 % (0.0-6.0); %Monocytes 12.8 % (0.0-10.0); %Neutrophils 66.6 % (40.0-75.0); Hemoglobin 9.5 g/dL (12.0-15.5); Mean Corpuscular HGB CONC 32.1 g/dL (32.0-36.0); Mean Corpuscular Hemoglobin 30.5 pg (27.0-33.0); Mean Corpuscular Volume 95.2 fl (81.6-98.3); Mean Platelet Volume 9.9 fl (7.4-10.4); Platelet Count 227 10x3/uL (150-450); RBC Distribution Width 12.8 % (11.5-14.5); Red Blood Cell (RBC) Count 3.11 10x6/uL (3.90-5.03); White Blood Cell (WBC) Count 8.7 10x3/uL (3.5-10.5)
[2022-11-01 06:31] LABS: Anion Gap 16 mmol/L (10-20); BUN (Urea Nitrogen) 35 mg/dL (9.8-20.1); Calc. Creatinine Clearance 33 mL/min (70-130); Calcium 8.9 mg/dL (7.8-10.44); Carbon Dioxide 24 mmol/L (23-31); Chloride 105 mmol/L (98-107); Estimated GFR 51; Glucose 137 mg/dL (83-110); Potassium 4.6 mmol/L (3.5-5.1); Sodium 140 mmol/L (136-145)
[2022-11-01] MEDS: Acetaminophen 325 MG TAB PO PRN ×3 (06:46→21:15)
[2022-11-01] MEDS: Morphine 2 MG/ML VIAL SLOW IVP PRN (10:54)
[2022-11-01] MEDS: Aspirin Chewable 81 MG TAB PO SCH (10:57)
[2022-11-01] MEDS: Fish Oil 1,000 MG CAP PO SCH (10:57)
[2022-11-01] MEDS: Famotidine 20 MG TAB PO SCH (10:57)
[2022-11-01] MEDS: Calcium Carbonate 500 MG TAB PO SCH (11:01)
[2022-11-01] MEDS: Ezetimibe 10 MG TAB PO SCH (11:01)
[2022-11-01] MEDS: Losartan Potassium 50 MG TAB PO SCH (11:10)
[2022-11-01] MEDS: pyridOXINE 50 MG (B6) TAB PO SCH (11:10)
[2022-11-01] MEDS: Magnesium Oxide 400 MG TAB PO SCH (11:10)
[2022-11-01] MEDS ORDERED: Dofetilide 0.25 MG CAP PO SCH (11:30)
[2022-11-01] MEDS: CO Q-10 CAPSULE 50 MG PO SCH (11:40)
[2022-11-01] MEDS ORDERED: Dofetilide 0.125 MG CAP PO SCH (11:45)
[2022-11-01] MEDS: HumaLOG 300 UNITS/3 ML VIAL SC PRN ×2 (13:23→19:28)
[2022-11-01] MEDS: Senokot S 8.6-50 MG TAB PO PRN (17:17)
[2022-11-02] MEDS: Morphine 4 MG/ML VIAL SLOW IVP PRN (00:55)
[2022-11-02] MEDS ORDERED: Magnesium 2 GM/50 ML(in water) 2 GM in Premix Bag 1 BAG IVPB SCH (01:30)
[2022-11-02] MEDS ORDERED: Metoprolol Tartrate 25 MG TAB PO SCH (01:30)
[2022-11-02 06:24] LABS: #Basophils 0.1 10x3/uL (0.0-0.2); #Eosinphils 0.3 10x3/uL (0.0-0.5); #Neutrophils 4.9 10x3/uL (1.5-8.4); %Basophils 0.6 % (0.0-2.0); Hemoglobin 9.3 g/dL (12.0-15.5); Mean Corpuscular HGB CONC 32.4 g/dL (32.0-36.0); Mean Corpuscular Hemoglobin 30.5 pg (27.0-33.0); Mean Corpuscular Volume 94.1 fl (81.6-98.3); Mean Platelet Volume 9.5 fl (7.4-10.4); Platelet Count 235 10x3/uL (150-450); RBC Distribution Width 12.8 % (11.5-14.5); Red Blood Cell (RBC) Count 3.05 10x6/uL (3.90-5.03); White Blood Cell (WBC) Count 7.7 10x3/uL (3.5-10.5)
[2022-11-02 06:27] LABS: Anion Gap 14 mmol/L (10-20); BUN (Urea Nitrogen) 34 mg/dL (9.8-20.1); Calc. Creatinine Clearance 39 mL/min (70-130); Calcium 8.5 mg/dL (7.8-10.44); Carbon Dioxide 26 mmol/L (23-31); Chloride 105 mmol/L (98-107); Estimated GFR 61; Glucose 170 mg/dL (83-110); Magnesium 2.7 mg/dL (1.6-2.6); Potassium 4.6 mmol/L (3.5-5.1); Sodium 140 mmol/L (136-145)
[2022-11-02] MEDS: HumaLOG 300 UNITS/3 ML VIAL SC PRN ×2 (06:52→12:57)
[2022-11-02] MEDS: Dofetilide 0.125 MG CAP PO SCH ×2 (09:41→21:49)
[2022-11-02] MEDS: Aspirin Chewable 81 MG TAB PO SCH (09:41)
[2022-11-02] MEDS: pyridOXINE 50 MG (B6) TAB PO SCH ×2 (09:42→09:53)
[2022-11-02] MEDS: Losartan Potassium 50 MG TAB PO SCH (09:42)
[2022-11-02] MEDS: Ezetimibe 10 MG TAB PO SCH (09:42)
[2022-11-02] MEDS: Famotidine 20 MG TAB PO SCH (09:43)
[2022-11-02] MEDS: CO Q-10 CAPSULE 50 MG PO SCH ×2 (09:43→09:53)
[2022-11-02] MEDS: Cholecalciferol 1,000 UNITS (25 MCG) TAB PO SCH ×3 (09:44→21:49)
[2022-11-02] MEDS: Magnesium Oxide 400 MG TAB PO SCH ×2 (09:44→09:53)
[2022-11-02] MEDS: Fish Oil 1,000 MG CAP PO SCH ×2 (09:44→09:52)
[2022-11-02] MEDS: Calcium Carbonate 500 MG TAB PO SCH ×2 (09:44→09:52)
[2022-11-02] MEDS: Morphine 2 MG/ML VIAL SLOW IVP PRN (09:56)
[2022-11-02] MEDS: HYDROcodone/Acetaminophen 5/325 mg Tablet PO PRN ×2 (17:15→21:57)
[2022-11-02] MEDS: Metoprolol Tartrate 25 MG TAB PO SCH (21:48)
[2022-11-02] MEDS: Venlafaxine 75 MG TAB PO SCH (21:49)
[2022-11-02] MEDS: Atorvastatin Calcium 40 MG TAB PO SCH (21:49)
[2022-11-02] MEDS: QUEtiapine 25 MG TAB PO SCH (21:50)
[2022-11-02] MEDS: Senokot S 8.6-50 MG TAB PO PRN (21:56)
[2022-11-03 06:46] LABS: #Basophils 0.1 10x3/uL (0.0-0.2); #Eosinphils 0.4 10x3/uL (0.0-0.5); #Neutrophils 5.8 10x3/uL (1.5-8.4); %Basophils 0.7 % (0.0-2.0); %Eosinophils 4.4 % (0.0-6.0); %Lymphocytes 20.6 % (18.0-47.0); %Monocytes 10.9 % (0.0-10.0); Hemoglobin 10.5 g/dL (12.0-15.5); Mean Corpuscular HGB CONC 32.4 g/dL (32.0-36.0); Mean Corpuscular Hemoglobin 30.7 pg (27.0-33.0); Mean Corpuscular Volume 94.7 fl (81.6-98.3); Mean Platelet Volume 9.4 fl (7.4-10.4); Platelet Count 287 10x3/uL (150-450); RBC Distribution Width 12.7 % (11.5-14.5); Red Blood Cell (RBC) Count 3.42 10x6/uL (3.90-5.03); White Blood Cell (WBC) Count 9.2 10x3/uL (3.5-10.5)
[2022-11-03 07:00] LABS: Anion Gap 16 mmol/L (10-20); BUN (Urea Nitrogen) 38 mg/dL (9.8-20.1); Calc. Creatinine Clearance 33 mL/min (70-130); Calcium 9.1 mg/dL (7.8-10.44); Carbon Dioxide 23 mmol/L (23-31); Chloride 106 mmol/L (98-107); Estimated GFR 51; Glucose 145 mg/dL (83-110); Potassium 5.1 mmol/L (3.5-5.1); Sodium 140 mmol/L (136-145)
[2022-11-03] MEDS: Morphine 2 MG/ML VIAL SLOW IVP PRN ×2 (09:06→18:59)
[2022-11-03] MEDS: Calcium Carbonate 500 MG TAB PO SCH (09:07)
[2022-11-03] MEDS: Metoprolol Tartrate 25 MG TAB PO SCH ×2 (09:07→21:57)
[2022-11-03] MEDS: Ezetimibe 10 MG TAB PO SCH (09:07)
[2022-11-03] MEDS: Cholecalciferol 1,000 UNITS (25 MCG) TAB PO SCH ×2 (09:07→21:57)
[2022-11-03] MEDS: Losartan Potassium 50 MG TAB PO SCH (09:07)
[2022-11-03] MEDS: Famotidine 20 MG TAB PO SCH (09:07)
[2022-11-03] MEDS: Aspirin Chewable 81 MG TAB PO SCH (09:07)
[2022-11-03] MEDS: Dofetilide 0.125 MG CAP PO SCH ×2 (09:07→21:57)
[2022-11-03] MEDS: Magnesium Oxide 400 MG TAB PO SCH (09:08)
[2022-11-03] MEDS: Fish Oil 1,000 MG CAP PO SCH (09:08)
[2022-11-03] MEDS: CO Q-10 CAPSULE 50 MG PO SCH (09:08)
[2022-11-03] MEDS: pyridOXINE 50 MG (B6) TAB PO SCH (09:08)
[2022-11-03] MEDS: HYDROcodone/Acetaminophen 5/325 mg Tablet PO PRN ×2 (13:48→23:56)
[2022-11-03] MEDS: Venlafaxine 75 MG TAB PO SCH (21:56)
[2022-11-03] MEDS: QUEtiapine 25 MG TAB PO SCH (21:57)
[2022-11-03] MEDS: Atorvastatin Calcium 40 MG TAB PO SCH (21:57)
[2022-11-04 05:11] LABS: #Eosinphils 0.4 10x3/uL (0.0-0.5); #Monocytes 0.9 10x3/uL (0.0-1.1); #Neutrophils 5.2 10x3/uL (1.5-8.4); %Basophils 0.5 % (0.0-2.0); %Eosinophils 4.1 % (0.0-6.0); %Neutrophils 60.9 % (40.0-75.0); Hemoglobin 9.3 g/dL (12.0-15.5); Mean Corpuscular HGB CONC 32.4 g/dL (32.0-36.0); Mean Corpuscular Hemoglobin 30.2 pg (27.0-33.0); Mean Corpuscular Volume 93.2 fl (81.6-98.3); Mean Platelet Volume 9.5 fl (7.4-10.4); Platelet Count 278 10x3/uL (150-450); RBC Distribution Width 12.8 % (11.5-14.5); Red Blood Cell (RBC) Count 3.08 10x6/uL (3.90-5.03); White Blood Cell (WBC) Count 8.5 10x3/uL (3.5-10.5)
[2022-11-04 05:21] LABS: Anion Gap 13 mmol/L (10-20); BUN (Urea Nitrogen) 40 mg/dL (9.8-20.1); Calc. Creatinine Clearance 32 mL/min (70-130); Calcium 8.7 mg/dL (7.8-10.44); Carbon Dioxide 26 mmol/L (23-31); Chloride 104 mmol/L (98-107); Estimated GFR 49; Glucose 120 mg/dL (83-110); Potassium 4.7 mmol/L (3.5-5.1); Sodium 138 mmol/L (136-145)
[2022-11-04] MEDS: Cholecalciferol 1,000 UNITS (25 MCG) TAB PO SCH (08:48)
[2022-11-04] MEDS: Ezetimibe 10 MG TAB PO SCH (08:48)
[2022-11-04] MEDS: Fish Oil 1,000 MG CAP PO SCH (08:48)
[2022-11-04] MEDS: HYDROcodone/Acetaminophen 5/325 mg Tablet PO PRN (08:49)
[2022-11-04] MEDS: Metoprolol Tartrate 25 MG TAB PO SCH (08:49)
[2022-11-04] MEDS: Aspirin Chewable 81 MG TAB PO SCH (08:50)
[2022-11-04] MEDS: Magnesium Oxide 400 MG TAB PO SCH (08:50)
[2022-11-04] MEDS: Famotidine 20 MG TAB PO SCH (08:50)
[2022-11-04] MEDS: Dofetilide 0.125 MG CAP PO SCH (08:50)
[2022-11-04] MEDS: Losartan Potassium 50 MG TAB PO SCH (08:50)
[2022-11-04] MEDS: CO Q-10 CAPSULE 50 MG PO SCH (08:51)
[2022-11-04] MEDS: pyridOXINE 50 MG (B6) TAB PO SCH (08:51)
[2022-11-04] MEDS: Calcium Carbonate 500 MG TAB PO SCH (10:15)
[2022-11-04 15:17] VITALS: BP 154/68; TEMP 98.2
== END 2022-11-04 12:20 | DRG 481 ==
LOC: CSHERS 21:46 → CSHERHOLD 10-29 01:27 → CSHTELE 10-29 17:09
PROVIDERS: ADMIT Student in an Organized Health Care Education/Training Program; ATTEND Family Medicine
PROC: 0QS606Z Reposition Right Upper Femur with Intramedullary Internal Fixation Device, Open Approach (ICD-10-PCS; principal; 2022-10-30)
DX: S72.141A Displaced intertrochanteric fracture of right femur, initial encounter for closed fracture (principal); F03.918 Unspecified dementia, unspecified severity, with other behavioral disturbance; I50.30 Unspecified diastolic (congestive) heart failure; N17.9 Acute kidney failure, unspecified; F05 Delirium due to known physiological condition; I13.0 Hypertensive heart and chronic kidney disease with heart failure and stage 1 through stage 4 chronic kidney disease, or unspecified chronic kidney disease; I48.0 Paroxysmal atrial fibrillation; I25.10 Atherosclerotic heart disease of native coronary artery without angina pectoris; N18.30 Chronic kidney disease, stage 3 unspecified; Z66 Do not resuscitate; E11.22 Type 2 diabetes mellitus with diabetic chronic kidney disease; W19.XXXA Unspecified fall, initial encounter; I49.5 Sick sinus syndrome; E78.2 Mixed hyperlipidemia; E11.59 Type 2 diabetes mellitus with other circulatory complications; I77.89 Other specified disorders of arteries and arterioles; Z88.0 Allergy status to penicillin; Z95.5 Presence of coronary angioplasty implant and graft; Y92.89 Other specified places as the place of occurrence of the external cause; Z86.73 Personal history of transient ischemic attack (TIA), and cerebral infarction without residual deficits; Z79.82 Long term (current) use of aspirin; Z79.84 Long term (current) use of oral hypoglycemic drugs; Z79.899 Other long term (current) drug therapy; Z90.49 Acquired absence of other specified parts of digestive tract; Z90.710 Acquired absence of both cervix and uterus
CPT/HCPCS: 36415; 36416; 51702; 70450; 71045; 80048; 80053; 81003; 81015; 83735; 83880; 84443; 84484; 85025; 93005; 93010; 93970; 94760; 94762; 96374; 96375; C1713; J1650; J1815; J2060; J2270; J2272; J2405; J2704; J3010; J3475; J3490; J7050; J8499